=== PATIENT | male | born 1990 | race Caucasian/White ===

== ENCOUNTER 2025-01-01 13:49 | Emergency (ER) | payer OTHER ==
[~2025-01-01] VITALS: Ht 167.6 cm; Wt 64.0 kg
[2025-01-01 13:53] VITALS: O2SAT 100
[2025-01-01] MEDS: ACETAMINOPHEN 325MG TABLET PO ONE (14:15)
[2025-01-01 14:35] LABS: CHLORIDE 103 mEq/L (98-107); POTASSIUM 3.9 mEq/L (3.5-5.1); SODIUM 136 mEq/L (136-145)
[2025-01-01 14:36] LABS: CARBON DIOXIDE 23 mEq/L (21-32)
[2025-01-01 14:37] LABS: BASOPHILS % 0.6 % (0.0-2.0); CALCIUM 9.7 mg/dL (8.7-10.4); EOSINOPHILS % 1.3 % (0.0-5.0); HEMATOCRIT. 39.2 % (42.0-52.0); HEMOGLOBIN. 13.6 g/dL (14.0-18.0); LYMPHOCYTES % 20.4 % (20.0-50.0); MEAN CORPUSCULAR HEMOGLOBIN 30.3 pg (28.0-32.0); MEAN CORPUSCULAR HGB CONC 34.8 g/dL (31.0-37.0); MEAN CORPUSCULAR VOLUME 87.2 fL (80.0-94.0); MEAN PLATELET VOLUME 8.1 fl (7.4-10.4); MONOCYTES % 6.4 % (2.0-8.0); NEUTROPHILS % 71.3 % (40.0-76.0); PLATELET 319 x1000/uL (130-400); RED CELL DISTRIBUTION WIDTH 12.8 % (11.6-14.6)
[2025-01-01 14:41] LABS: GLUCOSE 111 mg/dL (70-105)
[2025-01-01 14:42] LABS: UREA NITROGEN BLOOD 18 mg/dL (9-23)
[2025-01-01 15:15] LABS: TROPONIN I HIGH SENSITIVITY < 4 ng/L (3.0-53)
[2025-01-01 15:28] VITALS: BP 123/80; PULSE 71; RESP 16; TEMP 36.9; O2SAT 99
== END 2025-01-01 15:41 | disposition home or self-care (01) ==
LOC: ER 13:49
DX: R07.89 Other chest pain (principal); R00.2 Palpitations; R20.0 Anesthesia of skin
CPT/HCPCS: 36415; 71045; 80048; 84484; 85025; 93005; 99285